=== PATIENT | male | born 1970 ===

== ENCOUNTER 2017-12-14 20:09 | Emergency (ER) | payer OTHER ==
[~2017-12-14] VITALS: Ht 190.5 cm; Wt 94.5 kg
[2017-12-14 20:16] VITALS: BP 152/97; TEMP 97.3
[2017-12-14] MEDS ORDERED: ZESTORETIC 25 M1 TAB PO (20:20)
[2017-12-14] MEDS ORDERED: PROTONIX 40MG T40 MG PO (20:21)
[2017-12-14] MEDS ORDERED: NAPROSYN500 MG PO (20:21)
[2017-12-14 22:44] VITALS: PULSE 76
== END 2017-12-14 22:45 | disposition home or self-care (01) ==
LOC: COL.ER 20:09
DX: F07.81 Postconcussional syndrome (principal); I10 Essential (primary) hypertension; F17.210 Nicotine dependence, cigarettes, uncomplicated; W22.8XXA Striking against or struck by other objects, initial encounter; Y92.89 Other specified places as the place of occurrence of the external cause; Y99.0 Civilian activity done for income or pay

== ENCOUNTER 2018-01-02 15:20 | Outpatient (RCR) | payer OTHER ==
[~2018-01-02 15:20] MED LIST: NAPROSYN500 MG PO; PROTONIX 40MG T40 MG PO; ZESTORETIC 25 M1 TAB PO
== END 2018-02-08 10:20 | disposition home or self-care (01) ==
LOC: WSOH 15:20
DX: S00.93XA Contusion of unspecified part of head, initial encounter (principal); F07.81 Postconcussional syndrome; W22.8XXA Striking against or struck by other objects, initial encounter; Y99.0 Civilian activity done for income or pay

== ENCOUNTER → 2020-05-05 | Outpatient (CLI) | payer BC | LOC: COL.RAD 09:10 | DX: R10.11 Right upper quadrant pain (principal); R19.7 Diarrhea, unspecified ==

== ENCOUNTER 2021-10-20 09:04 | Outpatient (RCR) | payer OTHER | END 2021-10-21 | disposition home or self-care (01) | LOC: WSOH | DX: S61.210A Laceration without foreign body of right index finger without damage to nail, initial encounter (principal); I10 Essential (primary) hypertension; Y99.0 Civilian activity done for income or pay ==